=== PATIENT | female | born 1980 | race Caucasian/White ===

== ENCOUNTER 2017-07-27 14:33 | Outpatient (CLI) | payer OTHER | END 2017-07-27 15:12 | disposition home or self-care (01) | LOC: RAD 14:33 | DX: R07.9 Chest pain, unspecified (principal) ==

== ENCOUNTER 2018-04-14 15:01 | Outpatient (CLI) | payer OTHER | END 2018-04-14 15:08 | disposition home or self-care (01) | LOC: MAMO-SONO 15:01 | DX: Z12.31 Encounter for screening mammogram for malignant neoplasm of breast (principal) ==

== ENCOUNTER 2020-06-05 12:35 | Outpatient (CLI) | payer OTHER | END 2020-06-05 12:48 | disposition home or self-care (01) | LOC: MAMO-SONO 12:35 | PROVIDERS: ATTEND Obstetrics & Gynecology Gynecology | DX: N60.11 Diffuse cystic mastopathy of right breast (principal); N60.12 Diffuse cystic mastopathy of left breast ==